=== PATIENT | female | born 2000 | race Caucasian/White ===

== ENCOUNTER → 2023-12-30 | Outpatient (CLI) | payer BC ==
--- NOTE | 2023-12-31 03:04 | US ---
EXAMINATION TYPE: US transvaginal DATE OF EXAM: 12/30/2023 COMPARISON: NONE CLINICAL INDICATION: Female, 23 years old with history of R10.32 LEFT LOWER QUADRANT PAIN; Left pelvi c pain TECHNIQUE: Transvaginal (TV). Date of LMP: 12/22/23 EXAM MEASUREMENTS: Uterus: 7.3 x 3.1 x 3.7 cm Endometrial Stripe: 0.6 cm Right Ovary: 3.6 x 2.9 x 2.4 cm Left Ovary: 3.0 x 2.0 x 1.7 cm 1. Uterus: Anteverted small amount of fluid within cervix 2. Endometrium: wnl 3. Right Ovary: dominant follicle = 2.0cm 4. Left Ovary: follicles noted 5. Bilateral Adnexa: wnl 6. Posterior cul-de-sac: small amount of free fluid IMPRESSION: No ultrasound evidence for acute process.
== END | disposition home or self-care (01) ==
LOC: RADUSWWP 10:02
PROVIDERS: ATTEND Family Medicine
DX: R10.32 Left lower quadrant pain (principal)
CPT/HCPCS: 76830